=== PATIENT | male | born 1970 | race Caucasian/White ===

== ENCOUNTER 2018-04-08 23:08 | Emergency (ER) | payer OTHER ==
[~2018-04-08] VITALS: Ht 170.2 cm; Wt 77.1 kg
[~2018-04-08 23:08] MED LIST: ATIVAN1 MG PO; DOXYCYCLINE 10100 MG PO; NOHOMEMEDICATIONS; NYSTATIN-TRIAMC15 G1 TP; STERAPRED DS10 MG PO
[2018-04-09] MEDS ORDERED: AUGMENTIN 875-1 EACH PO (00:57)
[2018-04-09] MEDS ORDERED: IBUPROFEN 600600 M1 PO (00:58)
[2018-04-09] MEDS ORDERED: HYDROCODONE-AP1 EAC6 PO (00:58)
[2018-04-09 01:29] VITALS: BP 132/69
== END 2018-04-09 01:30 | disposition home or self-care (01) ==
LOC: M.ERS 23:08
DX: S21.151A Open bite of right front wall of thorax without penetration into thoracic cavity, initial encounter (principal); S61.451A Open bite of right hand, initial encounter; S51.851A Open bite of right forearm, initial encounter; Z23 Encounter for immunization; W54.0XXA Bitten by dog, initial encounter; Y93.89 Activity, other specified; Y92.89 Other specified places as the place of occurrence of the external cause; Y99.8 Other external cause status